=== PATIENT | female | born 1995 | race Caucasian/White ===

== ENCOUNTER 2017-03-28 12:42 | Emergency (ER) | payer MEDICAID ==
[~2017-03-28] VITALS: Ht 154.9 cm; Wt 60.4 kg
[2017-03-28 17:08] VITALS: BP 120/82
== END 2017-03-28 17:08 | disposition home or self-care (01) ==
LOC: ED 12:42
DX: L05.01 Pilonidal cyst with abscess (principal)
CPT/HCPCS: J2001; J2270; Q0162

== ENCOUNTER 2017-03-30 11:05 | Emergency (ER) | payer MEDICAID ==
[2017-03-30 11:08] VITALS: BP 133/86
== END 2017-03-30 14:16 | disposition home or self-care (01) ==
LOC: ED 11:05
DX: Z48.01 Encounter for change or removal of surgical wound dressing (principal)